=== PATIENT | female | born 1990 | race Hispanic/Latino ===

== ENCOUNTER 2016-10-22 23:15 | Inpatient (IN) | payer BC, OTHER ==
[2016-10-23] MEDS ORDERED: Lactated Ringer's 1,000 ML IV SCH ×2 (01:45→13:55)
[2016-10-23 02:14] LABS: BASO # 0.1 K/uL (0.0-0.2); BASO % 0.6 % (0.0-2.0); EOS # 0.1 K/uL (0.0-0.7); EOS % 0.7 % (0.0-4.0); HEMATOCRIT 29.9 % (34.0-47.0); LYMPH # 3.1 K/uL (1.0-4.3); LYMPH % 22.7 % (20.0-40.0); MEAN CELL VOLUME 87.2 fl (81.0-99.0); MEAN CORPUSCULAR HEMOGLOBIN 29.7 pg (27.0-31.0); MEAN PLATELET VOLUME 8.3 fl (7.2-11.7); MONO % 7.6 % (0.0-10.0); NEUT # 9.4 K/uL (1.8-7.0); NEUT % 68.4 % (50.0-75.0); RED CELL DISTRIBUTION WIDTH 13.5 % (11.5-14.5); WHITE BLOOD COUNT 13.7 K/uL (4.8-10.8)
[2016-10-23] MEDS: Lactated Ringer's 1,000 ML IV SCH ×4 (03:04→12:51)
[2016-10-23] MEDS ORDERED: Oxytocin 30 units/LR 500ML 500 ML IV ONE ×3 (08:21→22:30)
[2016-10-23] MEDS ORDERED: Lidocaine 1% Inj (20ml) ONE (08:44)
[2016-10-23] MEDS ORDERED: Bupivacaine HCl 0.25% PF (10 ml) Inj ONE (13:46)
[2016-10-23] MEDS ORDERED: Fentanyl/Bupivacaine HCl 250 ML EPI ONE (13:46)
--- NOTE | 2016-10-23 17:07 | OBPN ---
Datetime: 10/23/2016 16:54 IP Progress Impression: Normal progression of labor IP Procedures: Artificial ROM IP Progress Plan: Continue present management Membranes, Provider: Ruptured Amniotic Fluid Color, Provider: Clear Contraction Comments Provider: 2-3 FHR - Baseline A Provider: 120 IP Progress Note Comment: at 40+4 wks in labor FHT reassuring, GBS negative Continue pitocin augmentation NICHD Accel Fetus A IP Provider: 15X15 FHR Category Provider Fetus A: Category I NICHD Variability Prov Fetus A: Moderate 6-25bpm Dilatation, Provider: 6 Effacement, Provider: 75 Station, Provider: -2 NICHD Decel Fetus A IP Provider: None Datetime: 10/22/2016 23:54 Vital Signs Provider: Reviewed; Within Normal Limits
[2016-10-23 19:35] VITALS: BP 122/65; PULSE 79; RESP 16; TEMP 98.2; O2SAT 100
[2016-10-23] MEDS ORDERED: Benzocaine/Menthol SPRAY TOP PRN (20:51)
[2016-10-23] MEDS ORDERED: Oxycodone/Acetaminophen 5/325 mg Tab PO PRN (20:51)
--- NOTE | 2016-10-23 20:59 | OBDS ---
MATERNAL INFORMATION Provider Comments: Pt progressed to fully dilated and pushed to deliver a viable female throu gh clear fluid at 2030. Apgars 9 and 9. Wt 8#5, 3770gms. Mouth and nares bulb-suctioned. Infant p laced on mother's abdomen. Cord clamped and cut. Cord blood collected. Placenta delivered spontane ously intact w/ a 3vc at 2038. Perineum had 3 superficial abrasions. No vaginal tear noted. Bimanu al massage done for hemostasis. Pt and baby tolerated the procedure well. EBL 250mL LABOR SUMMARY EDC: 10/19/2016 00:00 No. Babies in Womb: 1 Attempted: No Labor Anesthesia: Epidural LABOR INFORMATION Onset of Labor: 10/23/2016 13:55 Oxytocin: Augmentation Group B Beta Strep: Negative Antibiotics # of Doses: none Antibiotics Time of Last Dose: n/a MEMBRANES Membranes Rupture Method: Artificial Rupture of Membranes: 10/23/2016 15:38 Amniotic Fluid Color: Clear Amniotic Fluid Amount: Large Amniotic Fluid Odor: Normal PRESENTATION/POSITION BABY A Presentation: Cephalic
--- NOTE | 2016-10-23 23:02 | OBPPN ---
Datetime: 10/23/2016 22:42 PP Progress Note Prov: LICENSED SURVEYOR NOTE Called by nurse to evaluate for PP bleedingwith passage of clots. o: VE 300cc of clotted blood @cervix extracted. i: pp bleeding p: bimanual massage methergine 0.2mg x2
[2016-10-24] MEDS ORDERED: Benzocaine/Menthol SPRAY TOP PRN (00:46)
[2016-10-24] MEDS ORDERED: Oxycodone/Acetaminophen 5/325 mg Tab PO PRN (00:46)
[2016-10-24 08:25] LABS: BASO # 0.1 K/uL (0.0-0.2); BASO % 0.5 % (0.0-2.0); EOS % 0.3 % (0.0-4.0); HEMATOCRIT 27.1 % (34.0-47.0); LYMPH # 2.5 K/uL (1.0-4.3); LYMPH % 16.9 % (20.0-40.0); MEAN CORPUSCULAR HEMOGLOBIN 29.4 pg (27.0-31.0); MEAN CORPUSCULAR HGB CONC 33.4 g/dL (33.0-37.0); MEAN PLATELET VOLUME 8.1 fl (7.2-11.7); MONO # 1.3 K/uL (0.0-0.8); MONO % 8.6 % (0.0-10.0); NEUT % 73.7 % (50.0-75.0); RED CELL DISTRIBUTION WIDTH 13.8 % (11.5-14.5)
--- NOTE | 2016-10-24 15:33 | OBPPN ---
Datetime: 10/24/2016 15:30 PP Pain Prov: Within normal limits PP Nausea Prov: Denies PP Flatus Prov: Yes PP Breasts Prov: Not Done PP Heart Prov: Normal PP Lungs Prov: Normal PP Abdomen/Uterus Prov: Normal PP Lochia Prov: Not Done PP Vulva/Perineum Prov: Not Done PP CVA Tenderness Prov: Normal PP Extremities Prov: Normal PP Impression Prov: Normal progression PP Plan Prov: Continue present management PP Progress Note Prov: Patient while voiding without difficulty tolerating diet reports minimal loch ia Vital signs stable afebrile Uterus firm below the umbilicus Extremities no Homans day #1 Ambulate, analgesia, regular diet, anticipate discharge in a.m. Vital Signs Provider PP: Reviewed
[2016-10-25] MEDS ORDERED: Measles, Mumps, and Rubella 1 EA VIAL SC ONE (09:23)
--- NOTE | 2016-11-11 11:29 | OBPPN ---
Datetime: 10/25/2016 11:54 PP Pain Prov: Within normal limits PP Nausea Prov: Denies PP Flatus Prov: Yes PP BM Prov: Yes PP Heart Prov: Normal PP Lungs Prov: Normal PP Abdomen/Uterus Prov: Normal PP Lochia Prov: Normal PP CVA Tenderness Prov: Normal PP Extremities Prov: Normal PP C/S Incision Prov: Not Applicable PP Progress Prov: Abnormal PP Impression Prov: Normal progression PP Plan Prov: Continue present management PP Progress Note Prov: PPD #2 Patient is doing well this AM. Reports no difficulty urinating, ambulating, has flatus and bowel m ovements. Tolerating PO diet, denies pain. Patient has no concerns or complaints at this time. Vital signs stable Cardiac: S1 S2 no murmurs/rubs/gallops Lungs: CTABL Abd: bowel sounds present, soft, non tender to palpation, uterus firm below umbilicus Ext: no edema A: 26 yr s/p on PPD #2 P: -continue current management -pain control -encouraged ambulation and adequate PO intake Myla Hale M.D. PGY1 IP PP Procedures: None
== END 2016-10-25 14:00 | disposition home or self-care (01) | DRG 373 ==
LOC: H.EROB2 23:15 → H.L&D 10-23 01:32 → H.OB/GYN 10-24 00:45
PROVIDERS: ADMIT Obstetrics & Gynecology; ATTEND Obstetrics & Gynecology
PROC: 10E0XZZ Delivery of Products of Conception, External Approach (ICD-10-PCS; principal; 2016-10-23)
PROC: 0HQ9XZZ Repair Perineum Skin, External Approach (ICD-10-PCS; 2016-10-23)
PROC: 4A1HXCZ Monitoring of Products of Conception, Cardiac Rate, External Approach (ICD-10-PCS; 2016-10-23)
DX: O71.89 Other specified obstetric trauma (principal); O71.82 Other specified trauma to perineum and vulva; Z37.0 Single live birth; Z3A.40 40 weeks gestation of pregnancy